=== PATIENT | male | born 1980 | race Caucasian/White ===

== ENCOUNTER 2020-02-17 11:04 | Emergency (ER) | payer BC, SELFPAY ==
--- NOTE | ~2020-02-17 | XR_ITS ---
EXAMINATION: XR ankle LT min 3V, XR foot LT min 3V DATE: 02/17/2020 11:53 INDICATION: Lateral left foot and ankle pain TECHNIQUE: 1. Anteroposterior, mortise, additional oblique and lateral view of the left ankle were obtained. 2. Dorsoplantar, two oblique and lateral views of the left foot were obtained. COMPARISON: None. FINDINGS: Alignment of the foot and ankle is normal. No fracture or osteochondral lesion. Joint spaces are well maintained. No ankle joint effusion. Small Achilles calcaneal spur. Diffuse soft tissue swelling abo ut the left foot and ankle. IMPRESSION: 1. No acute osseous abnormality at the left foot or ankle. Reviewed, dictated and finalized at location A. IMPRESSION: 1. No acute osseous abnormality at the left foot or ankle.
--- NOTE | 2020-02-17 11:06 | ED.GENADULT ---
HPI - General Adult General Chief complaint: Extremity Injury, Lower Stated complaint: L/foot injury Time Seen by Provider: 02/17/20 11:06 Source: patient Mode of arrival: ambulatory Limitations: no limitations History of Present Illness HPI narrative: 39-year-old male patient presents to the [facility] with complaints of left ankle pain for the past 3 to 4 days. Patient states he went camping over the weekend and took a long hike on Sunday. Patient states he felt fine after the hike but does remember slightly rolling his ankle a couple of times during the hike. Patient states that the next morning on Sunday he could not put any weight on his left foot or ankle. Patient states he has a lot of pain even with palpation to the lateral side of the ankle. Patient states he has been using a boot as well as some crutches to help get around and taking Aleve for pain. Related Data Home Medications Medication Instructions Recorded Confirmed albuterol sulfate 1 inh INHALATION BID 02/17/20 02/17/20 Allergies Allergy/AdvReac Type Severity Reaction Status Date / Time No Known Allergies Allergy Unknown Verified 02/17/20 11:09 Review of Systems Review of Systems: Narrative: CONSTITUTIONAL: Denies fever, chills, or sweats. EYES: Denies visual changes, redness, or discharge. ENT: Denies rhinorrhea, congestion, sore throat, or otalgia. CARDIOVASCULAR: Denies chest pain, palpitations, or edema. RESPIRATORY: Denies cough or dyspnea. GASTROINTESTINAL: Denies abdominal pain, nausea, vomiting, or diarrhea. GENITOURINARY: Denies dysuria or hematuria. SKIN: Denies rash or itching. MUSCULOSKELETAL: Denies back pain, joint pain, or myalgia. Positive left foot and ankle pain x3 to 4 days NEUROLOGIC: Denies headache, numbness, or weakness. PSYCHIATRIC: Denies anxiety or depression. [facility] Past Medical History Medical History (Updated 02/17/20 @ 12:16 by OPAL Frye) Asthma Fractures Right leg, toes. Dislocated right shoulder Family History Family History Mother Patient's mother is in good health Father Patient's father is in good health Social History Social History (Reviewed 02/17/20 @ 11:06 by ZULEYMA Frye Smoking status: Former smoker Smoking end date: 04/30/99 Alcohol intake: current Gender identity (if verbalized by the patient): Male Comments At the time of my signature I agree with nursing past medical history, surgical, social, and family history. There is no relevant family history pertinent to the presenting complaint. Exam Narrative: Exam Narrative: GENERAL: Well-appearing, well-nourished, and in no acute distress. HEAD: Normocephalic, atraumatic. EYES: PERRLA and EOMI. ENT: Nares clear, no rhinorrhea or epistaxis. Mucous membranes moist. NECK: Supple. No lymphadenopathy CHEST: Clear to auscultation. No respiratory distress. HEART: Regular rate and rhythm. No murmur heard. Normal peripheral pulses. ABDOMEN: Soft, nontender, nondistended, normal active bowel sounds. EXTREMITIES: Patient is unable to bear weight and ambulate without pain to the L foot and ankle. The L ankle is without obvious asymmetry or deformity when compared to the R ankle. Patienthas pain and limited active ROM with flex/extend, invert/bipin. No obvious surface trauma, ecchymosis. Soft tissue swelling noted over the lateral mallous. Bony tenderness to palpation over the left lateral malleolus. No pain over the anterior talofibular ligament, pain over the posterior talofibular ligament, no pain to the calcaneofibular ligament nontender and without swelling. No tenderness or deformity of the midfoot or over the proximal fifth metatarsal. Good DP and posterior tibial pulses and sensation to light touch normal. Talar tilt test is negative for ligament laxity to valgus or vargus stress. Negative anterior draw. Peroneal nerve is intact with strong eversion and plantar flexion.
[2020-02-17 11:22] VITALS: BP 142/82; PULSE 97; RESP 20; TEMP 36.8; O2SAT 98
== END 2020-02-17 12:20 | disposition home or self-care (01) ==
PROVIDERS: Emergency Provider Nurse Practitioner Family; PCP Family Medicine
DX: S93.402A Sprain of unspecified ligament of left ankle, initial encounter (principal); X50.9XXA Other and unspecified overexertion or strenuous movements or postures, initial encounter; Y93.01 Activity, walking, marching and hiking; Z87.891 Personal history of nicotine dependence; J45.909 Unspecified asthma, uncomplicated
CPT/HCPCS: 73610; 73630; 99213; G0463

== ENCOUNTER 2023-04-19 08:19 | Emergency (ER) | payer BC, SELFPAY ==
[2023-04-19 08:36] VITALS: BP 123/71; PULSE 77; RESP 18; TEMP 37.1; O2SAT 98
--- NOTE | 2023-04-19 08:49 | ED.URI ---
HPI - URI/Sore Throat General Chief Complaint: Upper Respiratory Infection Stated Complaint: headache,nausea,sore throat Time Seen by Provider: 04/19/23 08:21 Source: patient Mode of arrival: ambulatory Limitations: no limitations History of Present Illness HPI Narrative: Lance is a 43-year-old male patient presenting to the clinic today with complaints of headache, nausea, and sore throat x3 days. He denies any known fever. Denies any shortness of breath or chest pain. MD elicited complaint: sore throat, nasal congestion and other (Headache, nausea) Related Data Home Medications Medication Instructions Recorded Confirmed mometasone-formoterol HFA 200 2 puff inhalation BID 04/19/23 04/19/23 mcg-5 mcg/actuation aerosol inhaler (Dulera) montelukast 10 mg tablet 10 mg PO DAILY 04/19/23 04/19/23 Allergies Allergy/AdvReac Type Severity Reaction Status Date / Time No Known Allergies Allergy Unknown Verified 04/19/23 08:40 Review of Systems Review of Systems: Pertinent positives per HPI. Patient denies any fever, chills, rash, visual changes, dizziness, cough, shortness of breath, chest pain, palpitations, nausea, vomiting, diarrhea, constipation, abdominal pain, or any urinary issues. [facility] Past Medical History Medical History Asthma Fractures Right leg, toes. Dislocated right shoulder Family History Family History Mother Patient's mother is in good health Father Patient's father is in good health Social History Social History Smoking status: Former smoker Smoking end date: 04/30/99 Alcohol intake: current Substance use: never Gender identity (if verbalized by the patient): Male Comments At the time of my signature, I reviewed and agree with the nursing past medical, surgical, social, and family history. There is no relevant family history pertinent to the patient complaint. Exam Narrative: General: Well-developed, well nourished, in no apparent distress Head: Normocephalic, atraumatic Eyes: Pupils equally round and reactive to light bilaterally, EOM intact, sclera and conjunctive clear, no discharge, lids normal Ears: TMs intact and congested, ear canals clear, no drainage, grossly hearing normal. Nose: Nares patent, and clear discharge, no inflammation, no sinus tenderness. Mouth: Oral pharynx red with bilateral tonsillar enlargement without lesions or masses, good dentition, MMM. Neck: Supple, trachea midline, enlargement of anterior cervical nodes, no thyroid masses or goiter palpable. Cardio: Regular rate and rhythm, s1 and s2 normal, no murmur appreciated. Resp: Clear to auscultation bilaterally, no rhonchi, rales, wheezing or rubs Course Course Emergency Course: Portions of this record may have been created with voice recognition software. Level of Care: Express Care Visit Vital Signs Vital signs: Vital Signs Temperature 37.1 C 04/19/23 08:36 Pulse Rate 77 04/19/23 08:36 Respiratory Rate 18 04/19/23 08:36 Blood Pressure 123/71 04/19/23 08:36 Pulse Oximetry 98 04/19/23 08:36 Oxygen Delivery Room Air 04/19/23 08:36 Temperature 37.1 C 04/19/23 08:36 Pulse Rate 77 04/19/23 08:36 Respiratory Rate 18 04/19/23 08:36 Blood Pressure 123/71 04/19/23 08:36 Pulse Oximetry 98 04/19/23 08:36 Oxygen Delivery Room Air 04/19/23 08:36 Vital signs reviewed MDM - URI/Sore Throat MDM Narrative Medical decision making narrative: At the time of visit patient is resting comfortably on the exam table. Patient appears to be nontoxic. Strep test was performed and positive. Prescription for amoxicillin was sent to the pharmacy. Supportive measures were discussed with the patient and they voiced understanding discharge instructions and agrees to treatment p
== END 2023-04-19 08:56 | disposition home or self-care (01) ==
PROVIDERS: Emergency Provider Nurse Practitioner Family; PCP Family Medicine
DX: J02.0 Streptococcal pharyngitis (principal); J45.909 Unspecified asthma, uncomplicated; Z79.899 Other long term (current) drug therapy; Z87.891 Personal history of nicotine dependence
CPT/HCPCS: 87880; 99213; G0463

== ENCOUNTER 2024-07-09 12:15 | Outpatient (CLI) | payer BC, SELFPAY ==
[2024-07-09 12:42] LABS: Hematocrit 41.2 % (42.0-52.0); Hemoglobin 14.3 g/dL (14.0-18.0); Mean Corpuscular HGB Conc 34.7 g/dl (32-36); Mean Corpuscular Volume 86.6 fl (80-100); Mean Platelet Volume 11.7 fl (7.4-10.4); Platelet Count Result 179 k/mm3 (150-375); Red Blood Count 4.76 M/mm3 (4.6-6.20); Red Cell Distribution Width 12.4 % (11.5-14.5); White Blood Count 4.5 K/mm3 (4.5-10.0)
[2024-07-09 12:44] LABS: Add Urine Microscopic? YES; Appearance Urine Clear (Clear); Bilirubin Urine Negative (Negative); Blood Urine Negative (Negative); Color Urine Dark Yellow (Yellow); Glucose Urine UA Negative (Negative); Ketones Urine Trace mg/dL (Negative); Leukocyte Esterase Ur Negative LEU/UL (Negative); Nitrate Urine Negative (Negative); Protein Urine Negative (Negative); Specific Grav Ur 1.024 (1.001-1.035); pH Urine 5.5 (5.0-9.0)
[2024-07-09 12:53] LABS: Alanine Aminotransferase 31 U/L (6-50); Albumin Level 4.6 g/dL (3.5-5.1); Alkaline Phosphatase 53 U/L (38-126); Anion Gap 11 mmol/L (4-12); Aspartate Amino Transferase 37 U/L (17-59); Blood Urea Nitrogen 15 mg/dL (9-20); Calcium 9.2 mg/dL (8.4-10.2); Carbon Dioxide 25 mmol/L (22-30); Chloride 103 mmol/L (98-107); Estimated Glomerular Filt Rate > 60; Glucose 94 mg/dL (65-110); Potassium 4.6 mmol/L (3.4-5.0); Sodium 139 mmol/L (137-145)
[2024-07-09 13:07] LABS: Strep Group A RT-PCR NOT DETECTED (Negative)
[2024-07-09 13:20] LABS: Influenza A QL RT-PCR Positive (Negative); Influenza B QL RT-PCR Negative (Negative); RSV RNA, RT-PCR Negative (Negative); SARS-CoV-2 RNA PCR Negative (Negative)
--- OUTSIDE RECORDS SUMMARY | 2024-07-09 13:41 | XMS_ITS | Patient Health Summary ---
Author Organization [facility] Address [address] [place] [address] Care Team Providers Care Industrial Engineering Name Role Phone Piter Wylie MD Primary Care Provider [phone] Note from [facility],non-owned Affiliates and Associated Physician Practices is amultiple site organization consisting of ambulatory clinics and hospital sitesin [place], [place], [place] and [place]. This disclosure is being madepursuant to the Care Everywhere program and may not contain all information available regarding this patient. Last updated 18.[facility] Allergies No known active allergies Medications * Be aware that medications may not be up to date on this document. Alwaysverify current medications with the patient. * ALBUTEROL IN * fluticasone propionate (FLONASE) 50 MCG/ACT nasal spray(Started 05/03/2016) [place] 1 [place] into each nostril 2 times daily Social History Tobacco Use Types Packs/Day Years Used Date Smoking Tobacco: Former Sex and Gender Information Value Date Recorded Sex Assigned at Not on file Gender Identity Not on file Sexual Orientation Not on file Last Filed Vital Signs Vital Sign Reading Time Taken Comments Blood Pressure 122/76 12/29/2016 1:30 PM CDT Pulse 62 12/29/2016 1:30 PM CDT Temperature 36.8 C (98.2 F) 12/29/2016 1:30 PM CDT Respiratory Rate 16 12/29/2016 1:30 PM CDT Oxygen Saturation 98% 12/29/2016 1:30 PM CDT Inhaled Oxygen Concentration - - Weight 147.9 kg (326 lb) 12/29/2016 1:30 PM CDT Height 188 cm (6' 2 ) 12/29/2016 1:30 PM CDT Body Mass Index 41.86 12/29/2016 1:30 PM CDT Care Teams Industrial Engineering Relationship Specialty Start Date End Date Piter Wylie MD [address] [place] [id number] PCP - General Family Medicine 05/03/16
--- OUTSIDE RECORDS SUMMARY | 2024-07-09 13:41 | XMS_ITS | Clinical Summary ---
Author Organization [facility] Address [address] [place] [address] Care Team Providers Care Research Staff Member Name Role Phone Piter Wylie MD Primary Care Provider [phone] Source Comments [facility],non-owned Affiliates and Associated Physician Practices is amultiple site organization consisting of ambulatory clinics and hospital sitesin [place], [place], [place] and [place]. This disclosure is being madepursuant to the Care Everywhere program and may not contain all information available regarding this patient. Last updated 18.[facility] Allergies No known active allergies Medications * Be aware that medications may not be up to date on this document. Alwaysverify current medications with the patient. Medication Sig Dispensed Refills Start Date End Date Status ALBUTEROL IN Active fluticasone propionate (FLONASE) 50 MCG/ACT nasal sprayIndications:Acut e laryngitis [place] 1 [place] into each nostril 2 times daily 1 Bottle 05/03/2016 Active Social History Tobacco Use Types Packs/Day Years [...] Mass Index 41.86 12/29/2016 1:30 PM CDT Plan of Treatment Health Maintenance Due Date Last Done Comments LIPID TESTING 1980 HIV SCREENING 1995 HEPATITIS C SCREENING 04/09/1998 DTAP/TDAP/TD VACCINES (1 - Tdap) 1999 HEPATITIS B VACCINE (1 of 3 - 19+ 3-dose series) 1999 COVID-19 VACCINE (1 - 2023-2 5 season) 2023 INFLUENZA VACCINE (#1) 2023 DEPRESSION SCREENING 04/30/2024 ZOSTER VACCINE (1 of 2) 2030 HIB VACCINE Aged Out No longer eligi ble based on patient's age to complete this topic HPV VACCINE Aged Out No longer eligi ble based on patient's age to complete this topic MENINGOCOCCAL (Group B) VACC INE SHARED DECISION-MAKING Aged Out No longer eligibl e based on patient's age to complete this topic MENINGOCOCCAL GROUPS A/C/Y/W VACCINE Aged Out No longer eligible b ased on patient's age to complete this topic PNEUMOCOCCAL VACCINE Aged Out No long er eligible based on patient's age to complete this topic Care Teams Research Staff Member Relationship Specialty Start Date End Date Piter Wylie MD [address] [place] [address] PCP - General Family Medicine 05/03/16
--- OUTSIDE RECORDS SUMMARY | 2024-07-09 13:41 | XMS_ITS | Referral Summary ---
Author Organization [facility] Address [address] [place] [address] Care Team Providers Care Fourdrinier Machine Operator Name Role Phone Piter Wylie MD Primary Care Provider [phone] Source Comments [facility],non-owned Affiliates and Associated Physician Practices is amultiple site organization consisting of ambulatory clinics and hospital sitesin [place], [place], [place] and [place]. This disclosure is being madepursuant to the Care Everywhere program and may not contain all information available regarding this patient. Last updated 18.[facility] Allergies No known active allergies Medications * Be aware that medications may not be up to date on this document. Alwaysverify current medications with the patient. Medication Sig Dispensed Refills Start Date End Date Status ALBUTEROL IN Active fluticasone propionate (FLONASE) 50 MCG/ACT nasal sprayIndications:Acut e laryngitis [place] 1 [place] into each nostril 2 times daily 1 [...] 12/29/2016 1:30 PM CDT Plan of Treatment Not on file Care Teams Fourdrinier Machine Operator Relationship Specialty Start Date End Date Piter Wylie MD [address] [place] [address] PCP - General Family Medicine 05/03/16
== END 2024-07-09 12:16 | disposition home or self-care (01) ==
LOC: ANHLAB 12:16
PROVIDERS: PCP Family Medicine; Visit Provider Physician Assistant Medical
DX: R53.83 Other fatigue (principal); R05.9 Cough, unspecified; R06.02 Shortness of breath; R59.1 Generalized enlarged lymph nodes; R10.32 Left lower quadrant pain; R82.998 Other abnormal findings in urine
CPT/HCPCS: 36415; 80053; 81001; 84443; 85027; 87637; 87651